=== PATIENT | female | born 1960 | race Asian ===

== ENCOUNTER 2017-07-02 20:43 | Emergency (ER) | payer OTHER ==
[~2017-07-02] VITALS: Ht 154.9 cm; Wt 53.3 kg
[2017-07-02 21:36] LABS: HEMOGLOBIN 13.4 g/dL (11.7-16.4)
[2017-07-02 21:45] LABS: BLOOD UREA NITROGEN 22 mg/dL (7-18)
[2017-07-02] MEDS ORDERED: DOCUSATE 50 MG/5 ML ORAL SOL ONE (22:49)
[2017-07-02] MEDS ORDERED: DOCUSATE 50 MG/5 ML ORAL SOL PO ONE (23:00)
[2017-07-02 23:11] VITALS: BP 148/85
== END 2017-07-03 00:36 | disposition home or self-care (01) ==
LOC: ED 22:59
DX: R42 Dizziness and giddiness (principal); H61.23 Impacted cerumen, bilateral; I10 Essential (primary) hypertension
CPT/HCPCS: 36415; 69209; 70450; 80048; 82040; 85025; 93005; 99285

== ENCOUNTER → 2017-07-09 | Outpatient (CLI) | payer OTHER | END | disposition home or self-care (01) | LOC: CFH 10:16 | PROVIDERS: ATTEND Obstetrics & Gynecology | DX: Z12.31 Encounter for screening mammogram for malignant neoplasm of breast (principal); E04.2 Nontoxic multinodular goiter | CPT/HCPCS: 76536; G0202 ==